=== PATIENT | female | born 1995 | race Two or more races ===

== ENCOUNTER 2016-12-27 12:15 | Emergency (ER) | payer OTHER ==
[2016-12-27] MEDS ORDERED: Aspirin 81 MG Tab.Chew PO ONE (12:29)
[2016-12-27] MEDS ORDERED: Sodium Chloride 0.9% 10 ML Syringe FLUSH PRN (12:29)
[2016-12-27] MEDS ORDERED: Sodium Chloride 0.9% 2.5 ML Syringe FLUSH PRN (12:29)
--- NOTE | 2016-12-27 12:33 | EDM.PDOC ---
ED HPI GENERAL MEDICAL PROBLEM - General Chief Complaint: Respiratory Problem Stated Complaint: DIFFICULTY BREATHING Time Seen by Provider: 12/27/16 12:22 - History of Present Illness INITIAL COMMENTS - FREE TEXT/NARRATIVE: HISTORY AND PHYSICAL: History of present illness: The patient is a 21-year-old female whose only significant past medical history is of a "hole in her heart" which she says her director long term care at [facility] in [place], Dr. Pitts, is not doing anything other than following and presents with acute onset of pain at the lower part of her sternum just to the left that started suddenly associated with shortness of breath and inability to take a deep breath while she and her family were going to get something to eat. They were in the clinic for another appointment and she says she was having a normal morning when this started. She's had a similar episode happened 3 years ago and was seen in the ER in [place] and she says she was told "it had something to do with her lungs" and she had an EKG and other evaluation but was not admitted and put on a medication which she finished and the pain has not returned since that time. Which she is experiencing today she has not had for the last 3 years it is similar to that other episode. When she initially checked and she said the pain was sharp worse with deep breaths and she rated as a 7/10 and on my evaluation she says is almost gone and it's a 1/10. She didn't take any medications to help with the pain. She was not nauseated nor did she vomit and she's had no upper respiratory infections URI symptoms fever cough shortness of breath abdominal pain vomiting or diarrhea. Patient is unsure if she is . She has no leg pain or swelling and she does not take any control pills. Patient states her only family history is of a father who had diabetes and she says he had a heart attack and in his 60s but mother and siblings have no heart problems Please note that I contacted the director long term care's office in [place] and according to staff there this patient has not seen Dr. Pitts in over 3 years and has no upcoming scheduled appointments. Review of systems: As per history of present illness and below otherwise all systems reviewed and negative. Past medical history: As per history of present illness and as reviewed below otherwise noncontributory. Surgical history: As per history of present illness and as reviewed below otherwise noncontributory. Social history: No reported history of drug or alcohol abuse. Family history: As per history of present illness and as reviewed below otherwise noncontributory. Physical exam: Gen.: Well-developed well-nourished female was not breathless on my evaluation and vital signs of been reviewed by me. She is nontoxic and cooperative with exam. HEENT: Atraumatic, normocephalic, negative for conjunctival pallor or scleral icterus, mucous membranes moist, throat clear, neck supple, nontender, trachea midline. No cervical adenopathy or nuchal rigidity Lungs: Clear to auscultation, breath sounds equal bilaterally, chest nontender. On palpation of the area the patient indicates, the left lower sternal area extending underneath the left breast, there is no crepitus deformities and I cannot reproduce the pain on palpation. Heart: S1S2, regular, negative for clicks, rubs, or JVD. Abdomen: Soft, nondistended, nontender. There is actually no tenderness on upper abdominal exam no rebound no guarding and bowel sounds are normoactive Negative for masses or hepatosplenomegaly. Negative for costovertebral tenderness. Pelvis: Stable nontender. Genitourinary: Deferred. Rectal: Deferred. Extremities: Atraumatic, negative for cords or calf pain. Neurovascular unremarkable. No pedal edema or leg asymmetry Neuro: Awake, alert, oriented. Cranial nerves II through XII unremarkable. Cerebellum unremarkable. Motor and sensory unremarkable throughout. Exam nonfocal. Diagnostics: EKG CBC CMP troponin d-dimer lipase UA urine chest x-ray Therapeutics: Aspirin Toradol I discussed all testing results with the patient and family at bedside. The patient says she is not having the discomfort and she is very relieved with those results. I have discussed with her possible observation admission and offer that to her due to the atypicality of this and she declines at this time. She says she has not seen for more than 3 years because he told her that the hole in her heart is so small that there is nothing to do about it but that she needs to take antibiotics after procedures. She is aware of reasons to return to the ER and if symptoms change or evolve that she return for admission. She states understanding and I will give her a dose of Toradol before she leaves and have advised NSAIDs for home Impression: Pleuritic chest pain/chest wall pain stable resolved Definitive disposition and diagnosis as appropriate pending reevaluation and review of above. Chest Pain Score (Numeric/FACES): 7 - Related Data Allergies Allergy/AdvReac Type Severity Reaction Status Date / Time metronidazole [From Flagyl] Allergy Hives Verified 12/27/16 14:14 Home Meds: Home Meds . [No Known Home Meds] 12/27/16 [History] Past Medical History - Past Health History Medical/Surgical History: Denies Medical/Surgical History ED ROS GENERAL - Review of Systems Review Of Systems: ROS reveals no pertinent complaints other than HPI. ED EXAM, GENERAL - Physical Exam Exam: See Below (See dictation) Course - Vital Signs Last Recorded V/S: Last Vital Signs Temp 36.6 C 12/27/16 12:24 Pulse 82 12/27/16 12:24 Resp 18 12/27/16 12:24 BP 124/78 12/27/16 12:24 Pulse Ox 100 12/27/16 12:26 - Orders/Labs/Meds Orders: Active Orders 24 hr Category Date Time Status Cardiac Monitoring [RC] . DIRECTED Care 12/27/16 12:26 Active EKG Documentation Completion [RC] STAT Care 12/27/16 12:27 Active Oxygen Therapy, ED [RC] ASDIRECTED Care 12/27/16 12:26 Active Pulse Oximetry [RC] ASDIRECTED Care 12/27/16 12:27 Active Head wo Cont [CT] Stat Exams 12/27/16 13:46 Stop Req T4 FREE [CHEM] Stat Lab 12/27/16 12:00 Stop Req TSH [CHEM] Stat Lab 12/27/16 12:00 Stop Req Ketorolac [Toradol] Med 12/27/16 14:20 Once 30 mg IVPUSH ONETIME ONE Sodium Chloride 0.9% [Saline Flush] Med 12/27/16 12:29 Active 10 ml FLUSH ASDIRECTED PRN Sodium Chloride 0.9% [Saline Flush] Med 12/27/16 12:29 Active 2.5 ml FLUSH ASDIRECTED PRN Saline Lock Insert [OM.PC] Stat Oth 12/27/16 12:26 Ordered Medication Orders Sodium Chloride (Saline Flush) 10 ml FLUSH ASDIRECTED PRN PRN Reason: Keep Vein Open Sodium Chloride (Saline Flush) 2.5 ml FLUSH ASDIRECTED PRN PRN Reason: Keep Vein Open Labs: Laboratory Tests 12/27/16 12/27/16 12/27/16 Range/Units 12:00 12:00 12:00 WBC 9.81 (4.0-11.0) K/uL RBC 4.49 (4.30-5.90) M/uL Hgb 14.1 (12.0-16.0) g/dL Hct 40.8 (36.0-46.0) % MCV 90.9 (80.0-98.0) fL MCH 31.4 (27.0-32.0) pg MCHC 34.6 (31.0-37.0) g/dL RDW Std Deviation 42.5 (28.0-62.0) fl RDW Coeff of Rick 13 (11.0-15.0) % Plt Count 251 (150-400) K/uL MPV 11.10 (7.40-12.00) fL Neut % (Auto) 45.6 L (48.0-80.0) % Lymph % (Auto) 44.6 H (16.0-40.0) % [place]comb % (Auto) 7.0 (0.0-15.0) % Eos % (Auto) 2.3 (0.0-7.0) % Baso % (Auto) 0.5 (0.0-1.5) % Neut # (Auto) 4.5 (1.4-5.7) K/uL Lymph # (Auto) 4.4 H (0.6-2.4) K/uL [place] # (Auto) 0.7 (0.0-0.8) K/uL Eos # (Auto) 0.2 (0.0-0.7) K/uL Baso # (Auto) 0.1 (0.0-0.1) K/uL Nucleated RBC % 0.0 /100WBC Nucleated RBCs # 0 K/uL D-Dimer, Quantitative (0.0-0.52) mg/LFEU Sodium 142 (136-146) mmol/L Potassium 4.2 (3.5-5.1) mmol/L Chloride 107 (98-110) mmol/L Carbon Dioxide 25 (21-31) mmol/L BUN 6 (6.0-23.0) mg/dL Creatinine 0.7 (0.6-1.5) mg/dL Est Cr Clr Drug Dosing 119.01 mL/min Estimated GFR (MDRD) > 60.0 ml/min Glucose 91 (60-110) mg/dL Calcium 9.6 (8.8-10.8) mg/dL Total Bilirubin 0.5 (0.1-1.5) mg/dL AST 15 (5-40) IU/L ALT 9 (8-54) IU/L Alkaline Phosphatase 110 (40-150) Troponin I < 0.10 (0.0-0.29) NG/ML Total Protein 8.1 H (6.0-8.0) g/dL Albumin 4.4 (3.5-5.0) g/dL Globulin 3.7 H (2.0-3.5) g/dL Albumin/Globulin Ratio 1.2 L (1.3-2.8) Lipase 39 (7-80) U/L Urine Color Urine Appearance Urine pH (5.0-8.0) Ur Specific [place] (1.001-1.035) Urine Protein (NEGATIVE) mg/dL Urine Glucose (UA) (NEGATIVE) mg/dL Urine Ketones (NEGATIVE) mg/dL Urine Occult Blood (NEGATIVE) Urine Nitrite (NEGATIVE) Urine Bilirubin (NEGATIVE) Urine Urobilinogen (<2.0) EU/dL Ur Leukocyte Esterase (NEGATIVE) Urine RBC (0-2/HPF) Urine WBC (0-5/HPF) Ur Epithelial Cells (NONE-FEW) Urine Bacteria (NEGATIVE) Urine HCG, Qual (NEGATIVE) 12/27/16 12/27/16 12/27/16 Range/Units 12:39 12:39 12:39 WBC (4.0-11.0) K/uL RBC (4.30-5.90) M/uL Hgb (12.0-16.0) g/dL Hct (36.0-46.0) % MCV (80.0-98.0) fL MCH (27.0-32.0) pg MCHC (31.0-37.0) g/dL RDW Std Deviation (28.0-62.0) fl RDW Coeff of Rick (11.0-15.0) % Plt Count (150-400) K/uL MPV (7.40-12.00) fL Neut % (Auto) (48.0-80.0) % Lymph % (Auto) (16.0-40.0) % [place]comb % (Auto) (0.0-15.0) % Eos % (Auto) (0.0-7.0) % Baso % (Auto) (0.0-1.5) % Neut # (Auto) (1.4-5.7) K/uL Lymph # (Auto) (0.6-2.4) K/uL [place]comb # (Auto) (0.0-0.8) K/uL Eos # (Auto) (0.0-0.7) K/uL Baso # (Auto) (0.0-0.1) K/uL Nucleated RBC % /100WBC Nucleated RBCs # K/uL D-Dimer, Quantitative 0.23 (0.0-0.52) mg/LFEU Sodium (136-146) mmol/L Potassium (3.5-5.1) mmol/L Chloride (98-110) mmol/L Carbon Dioxide (21-31) mmol/L BUN (6.0-23.0) mg/dL Creatinine (0.6-1.5) mg/dL Est Cr Clr Drug Dosing mL/min Estimated GFR (MDRD) ml/min Glucose (60-110) mg/dL Calcium (8.8-10.8) mg/dL Total Bilirubin (0.1-1.5) mg/dL AST (5-40) IU/L ALT (8-54) IU/L Alkaline Phosphatase (40-150) Troponin I (0.0-0.29) NG/ML Total Protein (6.0-8.0) g/dL Albumin (3.5-5.0) g/dL Globulin (2.0-3.5) g/dL Albumin/Globulin Ratio (1.3-2.8) Lipase (7-80) U/L Urine Color YELLOW Urine Appearance CLEAR Urine pH 5.5 (5.0-8.0) Ur Specific [place] 1.010 (1.001-1.035) Urine Protein NEGATIVE (NEGATIVE) mg/dL Urine Glucose (UA) NEGATIVE (NEGATIVE) mg/dL Urine Ketones NEGATIVE (NEGATIVE) mg/dL Urine Occult Blood NEGATIVE (NEGATIVE) Urine Nitrite NEGATIVE (NEGATIVE) Urine Bilirubin NEGATIVE (NEGATIVE) Urine Urobilinogen 0.2 (<2.0) EU/dL Ur Leukocyte Esterase NEGATIVE (NEGATIVE) Urine RBC 0-1 (0-2/HPF) Urine WBC 0-2 (0-5/HPF) Ur Epithelial Cells RARE (NONE-FEW) Urine Bacteria RARE (NEGATIVE) Urine HCG, Qual NEGATIVE (NEGATIVE) Meds: Medications Generic Name Dose Route Start Last Admin Trade Name Freq PRN Reason Stop Dose Admin Sodium Chloride 10 ml 12/27/16 12:29 Saline Flush FLUSH ASDIRECTED PRN Keep Vein Open Sodium Chloride 2.5 ml 12/27/16 12:29 Saline Flush FLUSH ASDIRECTED PRN Keep Vein Open Discontinued Medications Generic Name Dose Route Start Last Admin Trade Name Freq PRN Reason Stop Dose Admin Aspirin 324 mg 12/27/16 12:29 12/27/16 13:44 Aspirin PO 12/27/16 12:30 324 mg ONETIME ONE Administration Departure - Departure Time of Disposition: 14:22 Disposition: Home, Self-Care 01 Condition: Good Clinical Impression: Chest wall pain, Pleuritic chest pain - Discharge Information Referrals: PCP,None [Primary Care Provider] - Forms: ED Department Discharge Additional Instructions: The following information is given to patients seen in the emergency department who are being discharged to home. This information is to outline your options for follow-up care. We provide all patients seen in our emergency department with a follow-up referral. The need for follow-up, as well as the timing and circumstances, are variable depending upon the specifics of your emergency department visit. If you don't have a primary care physician on staff, we will provide you with a referral. We always advise you to contact your personal physician following an emergency department visit to inform them of the circumstance of the visit and for follow-up with them and/or the need for any referrals to a consulting specialist. The emergency department will also refer you to a specialist when appropriate. This referral assures that you have the opportunity for followup care with a specialist. All of these measure are taken in an effort to provide you with optimal care, which includes your followup. Under all circumstances we always encourage you to contact your private physician who remains a resource for coordinating your care. When calling for followup care, please make the office aware that this follow-up is from your recent emergency room visit. If for any reason you are refused follow-up, please contact the [facility] emergency department at and ask to speak to the emergency department charge nurse. [facility] Primary care- Internal Medicine and Family [address] [address] Please use [id number] ibuprofen or Motrin for discomfort and call and follow-up in the clinic excrete for further evaluation and care. Return to ER as needed and as discussed. - My Orders Last 24 Hours: My Active Orders 12/27/16 12:00 T4 FREE [CHEM] Stat TSH [CHEM] Stat 12/27/16 12:26 Cardiac Monitoring [RC] . DIRECTED Oxygen Therapy, ED [RC] ASDIRECTED Saline Lock Insert [OM.PC] Stat 12/27/16 12:27 EKG Documentation Completion [RC] STAT Pulse Oximetry [RC] ASDIRECTED 12/27/16 12:29 Sodium Chloride 0.9% [Saline Flush] 10 ml FLUSH ASDIRECTED PRN Sodium Chloride 0.9% [Saline Flush] 2.5 ml FLUSH ASDIRECTED PRN 12/27/16 13:46 Head wo Cont [CT] Stat 12/27/16 14:20 Ketorolac [Toradol] 30 mg IVPUSH ONETIME ONE - Assessment/Plan Last 24 Hours: My Active Orders 12/27/16 12:00 T4 FREE [CHEM] Stat TSH [CHEM] Stat 12/27/16 12:26 Cardiac Monitoring [RC] . DIRECTED Oxygen Therapy, ED [RC] ASDIRECTED Saline Lock Insert [OM.PC] Stat 12/27/16 12:27 EKG Documentation Completion [RC] STAT Pulse Oximetry [RC] ASDIRECTED 12/27/16 12:29 Sodium Chloride 0.9% [Saline Flush] 10 ml FLUSH ASDIRECTED PRN Sodium Chloride 0.9% [Saline Flush] 2.5 ml FLUSH ASDIRECTED PRN 12/27/16 13:46 Head wo Cont [CT] Stat 12/27/16 14:20 Ketorolac [Toradol] 30 mg IVPUSH ONETIME ONE
[2016-12-27 13:37] LABS: CHLORIDE,CL 107 mmol/L (98-110); SODIUM,NA 142 mmol/L (136-146)
--- NOTE | 2016-12-27 14:15 | CR ---
EXAMINATION: Two-view chest (PA and Lateral views). HISTORY: Shortness of breath. FINDINGS: The trachea is midline. The cardiomediastinal silhouette is within normal limits. No pulmonary infilt rates, effusions or pneumothorax. Osseous structures appear unremarkable. IMPRESSION: No acute cardiopulmonary process.
[2016-12-27] MEDS ORDERED: Ketorolac 30 MG/ML SDV IVPUSH ONE (14:20)
[2016-12-27 14:39] VITALS: BP 117/79
== END 2016-12-27 14:48 | disposition home or self-care (01) ==
LOC: MW.ED 12:15
DX: R07.81 Pleurodynia (principal); Z88.1 Allergy status to other antibiotic agents
CPT/HCPCS: 36415; 71020; 80053; 81001; 81025; 83690; 84484; 85025; 85379; 93005; 96374; 99285; A9270; J1885; 99283

== ENCOUNTER 2018-12-12 08:56 | Emergency (ER) | payer OTHER ==
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
[2018-12-12] MEDS ORDERED: Ketorolac 10 MG Tab PO ONE ×2 (09:46→10:00)
[2018-12-12] MEDS ORDERED: LORazepam 0.5 MG Tab PO ONE (09:46)
[2018-12-12 10:01] LABS: CHLORIDE,CL 102 mmol/L (98-107); SODIUM,NA 140 mmol/L (136-145)
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
[2018-12-12 11:02] VITALS: BP 132/97
== END 2018-12-12 10:46 | disposition home or self-care (01) ==
LOC: MW.ED 08:56
DX: N39.0 Urinary tract infection, site not specified (principal); M62.838 Other muscle spasm; R07.89 Other chest pain; Z88.1 Allergy status to other antibiotic agents
CPT/HCPCS: 36415; 71045; 80053; 81001; 81025; 85025; 93005; 99284; A9270